=== PATIENT | female | born 1960 | race Caucasian/White ===

== ENCOUNTER 2021-07-14 16:34 | Emergency (ER) | payer MEDICAID ==
[~2021-07-14] VITALS: Ht 154.9 cm; Wt 77.3 kg
[2021-07-14 16:35] VITALS: BP 142/77
[2021-07-14] MEDS ORDERED: DiphenhydrAMINE HCL 50 MG CAPSULE PO ONE (17:15)
== END 2021-07-14 17:28 | disposition home or self-care (01) ==
LOC: EMS 16:37
DX: T63.441A Toxic effect of venom of bees, accidental (unintentional), initial encounter (principal); Z88.8 Allergy status to other drugs, medicaments and biological substances; Y92.89 Other specified places as the place of occurrence of the external cause
CPT/HCPCS: 99282; Z7502; Z7610